=== PATIENT | male | born 1975 | race Caucasian/White ===

== ENCOUNTER → 2021-03-29 | Outpatient (CLI) | payer BC | LOC: HEART 5 15:04 | DX: R06.02 Shortness of breath (principal); U09.9 Post COVID-19 condition, unspecified | CPT/HCPCS: 94010 ==

== ENCOUNTER → 2021-06-06 | Outpatient (CLI) | payer BC | LOC: SLEEP-COR 11:30 | DX: G47.33 Obstructive sleep apnea (adult) (pediatric) (principal) | CPT/HCPCS: 95811 ==